=== PATIENT | female | born 2000 | race Caucasian/White ===

== ENCOUNTER 2018-05-28 09:36 | Day surgery (SDC) | payer OTHER ==
[2018-05-28] MEDS ORDERED: MIDAZOLAM 1 MG/ML 2 ML INJ (11:06)
[2018-05-28] MEDS ORDERED: FENTAnyl 50 MCG/ML VIAL (11:06)
[2018-05-28] MEDS ORDERED: LIDOCAINE 2% (SDV) 5 ML INJ (11:06)
[2018-05-28] MEDS ORDERED: PROPOFOL 40 ML (11:06)
== END 2018-05-28 12:25 | disposition home or self-care (01) ==
LOC: GIL 09:36
DX: K29.80 Duodenitis without bleeding (principal); K29.70 Gastritis, unspecified, without bleeding; K64.4 Residual hemorrhoidal skin tags; G80.9 Cerebral palsy, unspecified
CPT/HCPCS: 43239; 88305